=== PATIENT | male | born 1960 | race Caucasian/White ===

== ENCOUNTER 2021-01-15 08:07 | Day surgery (SDC) | payer BC ==
[2021-01-15] MEDS ORDERED: Sodium Chloride 0.9% 1,000 ML IV SCH (09:00)
[2021-01-15] MEDS ORDERED: fentaNYL 100 MCG/2 ML SDV ONE (09:16)
[2021-01-15] MEDS ORDERED: Midazolam 1 MG/ML 2 ML SDV ONE (09:16)
[2021-01-15] MEDS ORDERED: Propofol 200 MG/20 ML SDV ONE (09:16)
--- NOTE | 2021-01-17 09:28 | OR ---
DATE OF PROCEDURE: 01/15/2021 SURGEON: Gigi Rodriguez MD PROCEDURE: Colonoscopy. FINDINGS: Normal colonoscopy. COMPLICATIONS: None. WELFARE PROJECT MANAGER: None. PREOPERATIVE DIAGNOSIS: Screening colonoscopy. POSTOPERATIVE DIAGNOSIS: Screening colonoscopy. RISKS: Risks, benefits, alternatives, and limitations including but not limited to infection, bleeding, perforation, and false positives and false negatives were explained to the patient, and they wished to proceed. PROCEDURE IN DETAIL: The patient was placed in left lateral decubitus position. Digital rectal exam was performed without abnormality. The scope was introduced and advanced atraumatically to the ileocecal valve. A photo was taken. The scope was brought back to the ascending, transverse, and descending colon and retroflexed. No evidence of old or new blood. No masses. No polyps. No evidence of colitis or other abnormality. No abnormalities on retroflexion. The prep was acceptable, approximately 90% of luminal surface could be seen. Greater than 8 minutes was spent removing the scope. The patient tolerated the procedure well. Gigi Rodriguez MD /[id number]
== END 2021-01-15 12:15 | disposition home or self-care (01) ==
LOC: JP.SDS 08:07
PROVIDERS: ATTEND Surgery
DX: Z12.11 Encounter for screening for malignant neoplasm of colon (principal)
CPT/HCPCS: 45378; J2250; J2704; J3010; J7030